=== PATIENT | female | born 1990 | race Two or more races ===

== ENCOUNTER → 2018-01-07 | Emergency (ER) | payer OTHER ==
[~2018-01-07] VITALS: Ht 160 cm; Wt 72.6 kg
== END | disposition home or self-care (01) ==
LOC: ER 20:31
DX: R10.13 Epigastric pain (principal)

== ENCOUNTER 2018-01-09 08:30 | Outpatient (CLI) | payer OTHER | END 2018-01-09 08:46 | disposition home or self-care (01) | LOC: SONOGRAMA 08:30 | DX: R10.13 Epigastric pain (principal) ==